=== PATIENT | female | born 1955 | race Caucasian/White ===

== ENCOUNTER → 2017-05-29 | Outpatient (CLI) | payer BC ==
[~2017-05-29] MED LIST: CALCIUM 600 +1 EA15 PO; CENTRUM SILVER1 EAC4 PO; KRILL OIL 3001 EACH PO; LODINE XL500 MG PO; NASONEX NASAL S17 GM NOSE; PLAQUENIL200 MG PO; SEMPREX D PO; VITAMIN D-32000 UNI1 PO
== END ==
LOC: GNJRC 10:17
DX: Z01.818 Encounter for other preprocedural examination (principal); M17.11 Unilateral primary osteoarthritis, right knee; Z79.899 Other long term (current) drug therapy